=== PATIENT | female | born 1975 | race Caucasian/White ===

== ENCOUNTER 2018-01-20 13:13 | Inpatient (IN) | payer OTHER ==
[~2018-01-20] VITALS: Ht 170.2 cm; Wt 85.3 kg
[2018-01-20 13:20] VITALS: BP 142/90
[2018-01-20] MEDS ORDERED: NACL 0.9% 2,000 ML IV SCH (13:41)
[2018-01-20] MEDS ORDERED: traMADol 50 MG TAB PO ONE (13:45)
[2018-01-20] MEDS ORDERED: PIPERACILLIN/TAZOBACTAM 3.375 GM VIAL IV ONE (14:02)
[2018-01-20 14:34] LABS: BASOPHILS # (AUTO) 0.1 K/uL (0.00-0.22); BASOPHILS % (AUTO) 1.1 % (0.0-2.0); EOSINOPHILS # (AUTO) 0.3 K/uL (0-0.4); EOSINOPHILS % (AUTO) 2.9 % (0.0-4.0); HEMATOCRIT 44.1 % (36-48); HEMOGLOBIN 14.8 g/dL (12.0-16.0); LYMPHOCYTES # (AUTO) 1.8 K/uL (2.5-16.5); LYMPHOCYTES % (AUTO) 19.3 % (20.5-51.1); MEAN CORPUSCULAR HEMOGLOBIN 30 pg (27-31); MEAN CORPUSCULAR HGB CONC 34 g/dL (33-37); MEAN CORPUSCULAR VOLUME 88.3 fL (80-94); MONOCYTES # (AUTO) 0.6 K/uL (0.8-1.0); MONOCYTES % (AUTO) 6.6 % (1.7-9.3); NEUTROPHILS # (AUTO) 6.6 K/uL (1.8-7.7); NEUTROPHILS % (AUTO) 70.1 % (42.2-75.2); PLATELET COUNT (AUTO) 289 K/uL (140-450); RED CELL DISTRIBUTION WIDTH 13.2 % (11.6-13.7); WHITE BLOOD COUNT (AUTO) 9.4 K/uL (4.8-10.8)
[2018-01-20] MEDS: PIPERACILLIN/TAZOBACTAM 3.375 GM in DEXT 5% MINI-BAG PLUS 50 ML IV ONE ×2 (14:42→14:43)
[2018-01-20 14:46] LABS: ACETONE, SERUM NEGATIVE (NEGATIVE)
[2018-01-20 14:49] LABS: ANION GAP 9.3 (8-16); CARBON DIOXIDE 32.5 mmol/L (21-32); POTASSIUM 3.8 mmol/L (3.5-5.1)
[2018-01-20] MEDS ORDERED: LORazepam 2 MG/ML VIAL IVP PRN (14:50)
[2018-01-20] MEDS ORDERED: ONDANSETRON 4 MG/2 ML VIAL IVP PRN (14:50)
[2018-01-20] MEDS ORDERED: HYDROcodone/APAP 5/325 MG 1 TAB TAB PO PRN ×2 (14:50)
[2018-01-20] MEDS ORDERED: ACETAMINOPHEN 325 MG TAB PO PRN (14:50)
[2018-01-20 14:51] LABS: PROTHROMBIN TIME 9.6 secs (10.8-13.4)
[2018-01-20 14:54] LABS: ALBUMIN 3.6 g/dL (3.4-5.0); TOTAL BILIRUBIN 0.6 mg/dL (0.0-1.0)
[2018-01-20 14:56] LABS: MAGNESIUM 1.8 mg/dL (1.8-2.4); URIC ACID 5.3 mg/dL (2.6-7.2)
[2018-01-20] MEDS ORDERED: DEXTROSE 50% 50 ML SYR IVP PRN (15:00)
[2018-01-20] MEDS ORDERED: METF500T PO (15:07)
[2018-01-20] MEDS ORDERED: GLIP5TAB4 PO (15:09)
[2018-01-20] MEDS ORDERED: GLIP5TER PO (15:09)
[2018-01-20] MEDS ORDERED: SIMV10TA1 PO (15:15)
[2018-01-20] MEDS ORDERED: PREG200C PO (15:16)
[2018-01-20] MEDS ORDERED: TRAM50TA1 PO (15:19)
[2018-01-20] MEDS ORDERED: DOCU-299 PO (15:20)
[2018-01-20 16:00] VITALS: BP 119/85
[2018-01-20] MEDS: BLOOD GLUCOSE MONITORING 1 DEV DEV FS SCH ×2 (16:30→21:24)
[2018-01-20] MEDS: INSULIN LISPRO SLIDING SCALE 100 UNITS/ML VIAL SUBQ PRN ×2 (18:08→21:25)
[2018-01-20] MEDS: traMADol 50 MG TAB PO PRN (20:28)
[2018-01-20] MEDS ORDERED: traMADol 50 MG TAB PO PRN (21:00)
[2018-01-20] MEDS: PIPER/TAZO 3.375GM/D5W PREMIX 50 ML IV SCH (22:14)
[2018-01-21] VITALS: BP 115/66
[2018-01-21] MEDS: traMADol 50 MG TAB PO PRN ×2 (03:17→09:39)
[2018-01-21] MEDS: PIPER/TAZO 3.375GM/D5W PREMIX 50 ML IV SCH ×2 (05:59→12:13)
[2018-01-21 06:18] LABS: BASOPHILS % (AUTO) 0.6 % (0.0-2.0); EOSINOPHILS # (AUTO) 0.3 K/uL (0-0.4); EOSINOPHILS % (AUTO) 4.4 % (0.0-4.0); HEMATOCRIT 40.9 % (36-48); HEMOGLOBIN 13.5 g/dL (12.0-16.0); LYMPHOCYTES # (AUTO) 2.2 K/uL (2.5-16.5); LYMPHOCYTES % (AUTO) 31.7 % (20.5-51.1); MEAN CORPUSCULAR HEMOGLOBIN 29 pg (27-31); MEAN CORPUSCULAR HGB CONC 33 g/dL (33-37); MONOCYTES # (AUTO) 0.6 K/uL (0.8-1.0); MONOCYTES % (AUTO) 8.7 % (1.7-9.3); NEUTROPHILS # (AUTO) 3.7 K/uL (1.8-7.7); NEUTROPHILS % (AUTO) 54.6 % (42.2-75.2); PLATELET COUNT (AUTO) 249 K/uL (140-450); RED BLOOD CELL COUNT(AUTO) 4.64 MIL/uL (4.20-5.40); RED CELL DISTRIBUTION WIDTH 13.3 % (11.6-13.7); WHITE BLOOD COUNT (AUTO) 6.8 K/uL (4.8-10.8)
[2018-01-21] MEDS: BLOOD GLUCOSE MONITORING 1 DEV DEV FS SCH ×3 (06:44→16:30)
[2018-01-21 06:58] LABS: ALBUMIN 3.1 g/dL (3.4-5.0); ANION GAP 10.3 (8-16); CARBON DIOXIDE 29.6 mmol/L (21-32); CREATININE 0.9 mg/dL (0.6-1.3); POTASSIUM 3.9 mmol/L (3.5-5.1); TOTAL BILIRUBIN 0.5 mg/dL (0.0-1.0)
[2018-01-21 07:02] LABS: MAGNESIUM 1.9 mg/dL (1.8-2.4); PHOSPHORUS 4.4 mg/dL (2.5-4.9)
[2018-01-21 08:00] VITALS: BP 114/72
[2018-01-21] MEDS ORDERED: ENOXAPARIN 40 MG/0.4 ML SYR SUBQ SCH (09:00)
[2018-01-21] MEDS ORDERED: DOCUSATE SODIUM 100 MG GELCAP PO SCH (09:00)
[2018-01-21] MEDS ORDERED: glipiZIDE 5 MG TAB PO SCH (09:00)
[2018-01-21] MEDS: PREGABALIN 50 MG CAP PO SCH ×3 (09:26→17:00)
[2018-01-21 10:41] LABS: COLOR,URINE YELLOW (YELLOW)
[2018-01-21 10:42] LABS: BILIRUBIN,URINE NEGATIVE (NEGATIVE); BLOOD, URINE NEGATIVE (NEGATIVE); LEUKOCYTE ESTERASE ,URINE NEGATIVE (NEGATIVE); NITRITE, URINE NEGATIVE (NEGATIVE); UGLUCOSE NEGATIVE (NEGATIVE)
[2018-01-21 11:03] LABS: APPEARANCE,URINE CLEAR (CLEAR); RBC,URINE 0-5 (RARE) /HPF (0-5); WBC,URINE 0-5 (RARE) /HPF (0-5)
[2018-01-21] MEDS ORDERED: CEPH250C16 PO (15:52)
[2018-01-21 16:00] VITALS: BP 118/75
[2018-01-21] MEDS ORDERED: SIMVASTATIN 10 MG TAB PO SCH (17:00)
== END 2018-01-21 17:25 | disposition home or self-care (01) | DRG 383 ==
LOC: MED 13:13 → MTU 14:50
PROVIDERS: ADMIT Hospitalist; ATTEND Hospitalist
DX: L03.116 Cellulitis of left lower limb (principal); E11.40 Type 2 diabetes mellitus with diabetic neuropathy, unspecified; E78.5 Hyperlipidemia, unspecified; J45.909 Unspecified asthma, uncomplicated; I87.8 Other specified disorders of veins; Z79.84 Long term (current) use of oral hypoglycemic drugs; Z79.899 Other long term (current) drug therapy
CPT/HCPCS: 36415; 36600; 71045; 73630; 80053; 81001; 81025; 82009; 82550; 82553; 82803; 82948; 83036; 83605; 83735; 83874; 83880; 84100; 84484; 84550; 85025; 85379; 85610; 85651; 85730; 86140; 87040; 87081; 87086; 93005; 93926; 93971; 96361; 96365; 99285; J1650; J1815; J2543; J7030; Q0092

== ENCOUNTER 2020-11-18 19:49 | Emergency (ER) | payer OTHER ==
[~2020-11-18] VITALS: Ht 170.2 cm; Wt 78.9 kg
[~2020-11-18 19:49] MED LIST: CEPH250C16 PO; DOCU-299 PO; GLIP5TAB14 PO; GLIP5TER PO; METF500T PO; PREG200C PO; SIMV10TA1 PO; TRAM50TA1 PO
[2020-11-18 21:05] VITALS: BP 126/90
--- NOTE | 2020-11-18 21:08 | NUR ---
TO LOBBY A/W BED AMBULATORY
--- NOTE | 2020-11-18 21:39 | NUR ---
PT TAKEN TO BED 6
--- NOTE | 2020-11-18 21:55 | NUR ---
Note undone in EDM - 11/18/20 at 2243 by DAVE 45 YO/F BIB SELF W C/O CONSTANT PRESSURE/SHARP HEADACHE X12 HOURS, DIZZYNESS W/O FAINTING AND X1 EPISODE OF VOMITING. PATIENT REPORTS PUTTING PRESSURE ON HER HEAD W HER HAND HELPS W THE PAIN, PAIN WORSENS WHEN LAYING DOWN OR W LIGHT. PATIENT DENIES ANY BLURRY VISION. PATIENT REPORTS HX OF HEADACHES BUT "NOT BAS THIS ONE." PATIENT AOX4, GCS15. PATIENT SITTING IN BED LOCKED IN LOWEST POSITION, X2 SIDERAILS UP FOR PATIENT SAFETY. BREATHING EVEN AND UNLABORED. PROVIDED PATIENT W A BLANKET AND DIMMED ROOM LIGHTS FOR COMFORT. PMH: DIABETES, ASTHMA, CANCER (RIGHT BREAST MASTECTOMY 10/01/2016) SEASONAL ALLERGIES ONLY TOOK TRAMADOL AT 1830
--- NOTE | 2020-11-18 21:55 | NUR ---
45 YO/F BIB SELF W C/O CONSTANT PRESSURE/SHARP HEADACHE X12 HOURS, DIZZYNESS W/O FAINTING AND X1 EPISODE OF VOMITING. PATIENT REPORTS HITTING HER HEAD ON HER TV SHE STOOD UP AFTER REACHING FOR SOMETHING UNDER IT THE NIGHT BEFORE SYMPTOMS BEGAN. PATIENT REPORTS PUTTING PRESSURE ON HER HEAD W HER HAND HELPS W THE PAIN, PAIN WORSENS WHEN LAYING DOWN OR W LIGHT. PATIENT DENIES ANY BLURRY VISION. PATIENT REPORTS HX OF HEADACHES BUT "NOT BAS THIS ONE." PATIENT AOX4, GCS15. PATIENT SITTING IN BED LOCKED IN LOWEST POSITION, X2 SIDERAILS UP FOR PATIENT SAFETY. BREATHING EVEN AND UNLABORED. PROVIDED PATIENT W A BLANKET AND DIMMED ROOM LIGHTS FOR COMFORT. PMH: DIABETES, ASTHMA, CANCER (RIGHT BREAST MASTECTOMY 10/01/2016) SEASONAL ALLERGIES ONLY TOOK TRAMADOL AT 1830
--- NOTE | 2020-11-18 22:11 | NUR ---
Dr. Obrien examining patient.
[2020-11-18] MEDS ORDERED: ONDA-24 PO (22:16)
[2020-11-18] MEDS ORDERED: ONDANSETRON 4 MG ODT PO ONE (22:45)
[2020-11-18 23:00] VITALS: BP 126/90
== END 2020-11-18 23:00 | disposition home or self-care (01) ==
LOC: MED 19:49
DX: S06.0X0A Concussion without loss of consciousness, initial encounter (principal); W22.8XXA Striking against or struck by other objects, initial encounter; Y93.89 Activity, other specified; Y92.89 Other specified places as the place of occurrence of the external cause; Y99.8 Other external cause status
CPT/HCPCS: 99283; Q0162

== ENCOUNTER 2022-10-06 00:30 | Inpatient (IN) | payer OTHER ==
[2022-10-06] VITALS (7 sets, daily range): BP systolic 114–145; BP diastolic 70–81; PULSE 92–121; RESP 16–18; TEMP 97.7–100.9; O2SAT 93–97
[~2022-10-06] VITALS: Ht 170.2 cm; Wt 77.1 kg
[~2022-10-06 00:30] MED LIST changes: +METF-346 PO; -METF500T PO; +ONDA-188 PO; +SIMV-371 PO; -SIMV10TA1 PO; +TRAM-748 PO; -TRAM50TA1 PO
[2022-10-06] MEDS ORDERED: ACETAMINOPHEN 325 MG TAB PO ONE (00:50)
[2022-10-06] MEDS ORDERED: ACETAMINOPHEN 325 MG TAB ONE ×2 (00:51)
--- NOTE | 2022-10-06 00:54 | NUR ---
PT AMBUL.ATES TO BED 8
--- NOTE | 2022-10-06 00:55 | NUR ---
pt ambulatory to restroom without assistance
--- NOTE | 2022-10-06 01:05 | NUR ---
PT PLACED ON C-MONITOR, IV ESTABLISHED, BLOOD DRAWN VIA IV LINE AND SENT TO LABE. PT TOLERATED WELL. PT UPDATED ON POC WITH FULL RETURNED VERBAL UNDERSTANDING. CALL LIGHT WITHIN REACH
[2022-10-06] MEDS ORDERED: NACL 0.9% 1,000 ML IV ONE ×2 (01:10→02:35)
[2022-10-06 01:21] LABS: APPEARANCE,URINE CLEAR (CLEAR); BILIRUBIN,URINE NEGATIVE (NEGATIVE); BLOOD, URINE TRACE-I (NEGATIVE); COLOR,URINE YELLOW (YELLOW); LEUKOCYTE ESTERASE ,URINE NEGATIVE (NEGATIVE); NITRITE, URINE NEGATIVE (NEGATIVE); UGLUCOSE 3+ (NEGATIVE)
[2022-10-06 01:24] LABS: BASOPHILS # (AUTO) 0.1 K/uL (0.00-0.22); BASOPHILS % (AUTO) 1.1 % (0.0-2.0); EOSINOPHILS # (AUTO) 0.1 K/uL (0-0.4); EOSINOPHILS % (AUTO) 0.7 % (0.0-4.0); HEMATOCRIT 46.4 % (36-48); HEMOGLOBIN 15.7 g/dL (12.0-16.0); LYMPHOCYTES # (AUTO) 2.1 K/uL (2.5-16.5); MEAN CORPUSCULAR HEMOGLOBIN 30 pg (27-31); MEAN CORPUSCULAR HGB CONC 34 g/dL (33-37); MEAN CORPUSCULAR VOLUME 88.7 fL (80-94); MONOCYTES % (AUTO) 7.4 % (1.7-9.3); NEUTROPHILS # (AUTO) 9.9 K/uL (1.8-7.7); NEUTROPHILS % (AUTO) 74.8 % (42.2-75.2); PLATELET COUNT (AUTO) 190 K/uL (140-450); RED BLOOD CELL COUNT(AUTO) 5.23 MIL/uL (4.20-5.40); RED CELL DISTRIBUTION WIDTH 13.8 % (11.6-13.7); WHITE BLOOD COUNT (AUTO) 13.2 K/uL (4.8-10.8)
[2022-10-06 01:38] LABS: ANION GAP 12.4 (8-16); CARBON DIOXIDE 30.4 mmol/L (21-32); CREATININE 1.2 mg/dL (0.6-1.3); POTASSIUM 3.8 mmol/L (3.5-5.1); TOTAL BILIRUBIN 1.1 mg/dL (0.0-1.0)
[2022-10-06] MEDS ORDERED: MORPHINE SULFATE 4 MG/ML SYR IVP ONE (02:35)
[2022-10-06] MEDS ORDERED: ONDANSETRON 4 MG/2 ML VIAL IVP ONE (02:35)
[2022-10-06] MEDS ORDERED: cefTRIAXone 1,000 MG VIAL ONE (02:45)
[2022-10-06] MEDS ORDERED: oxyCODONE/APAP 5/325 MG 1 TAB TAB PO ONE (02:50)
[2022-10-06] MEDS ORDERED: MORPHINE SULFATE 2 MG/ML SYR IVP PRN (06:35)
[2022-10-06] MEDS ORDERED: ACETAMINOPHEN 325 MG TAB PO PRN (06:35)
[2022-10-06] MEDS ORDERED: ONDANSETRON 4 MG/2 ML VIAL IVP PRN (06:35)
[2022-10-06] MEDS ORDERED: DEXTROSE 50% 50 ML SYR IVP PRN (06:35)
[2022-10-06] MEDS ORDERED: LORazepam 2 MG/ML VIAL IVP PRN (06:35)
[2022-10-06] MEDS ORDERED: HYDROcodone/APAP 5/325 MG 1 TAB TAB PO PRN (06:35)
[2022-10-06] MEDS: BLOOD GLUCOSE MONITORING 1 DEV DEV FS SCH ×4 (07:18→20:33)
--- NOTE | 2022-10-06 07:21 | NUR ---
Pt report given to Trupti HENDERSON. Transfer of care at this time.
--- NOTE | 2022-10-06 07:25 | NUR ---
Note keywily in EDM - 10/06/22 at 0733 by [email or web address] RECEIVED REPORT FROM BEATRIZ GONZALEZ, PT AT HEAD OF BED ON MONITOR. PT HAS BEEN ADMITTED FOR CELLULITIES . PT WILL BE TRANSFERED TO ROOM 112 A [facility]. PT HAS BEEN PLACED ON MONITOR. PT VITALS RECORDED. PER BEATRIZ GONZALEZ PTS PULSE RANGE IS 37- 50. MADE AWARE. PT IS RESTING.
--- NOTE | 2022-10-06 07:47 | NUR ---
RECEIVED REPORT FROM BEATRIZ GONZALEZ. PT IS BEING ADMITTED FOR CELLULITES OF THE RIGHT LEG. PT CAME IN LAST FROM HOME. PT STATES SHE HAS A HEADACHE PT STATES SHES BEEN IN PAIN 3 DAYS. PT HAS HAD A FEVER HIGH 100.9. PT TREATED FEVER WITH TYELNOL. PT WAS WEARING WORK BOOTS THAT CAUSED HER TO HAVE A BLISTER ON THE LEFT SIDE OF HER RIGHT LEG. PICTURES IN CHART. PT HAS MET SEPSIS PROTOCAL. PT DENIES COUGH AT THIS TIME; PATIENT STATES PAIN OF 4/10 AT THIS TIME; VSS; PATIENT POSITIONED FOR COMFORT; HOB ELEVATED; BEDRAILS UP X2; BED DOWN. CALL LIGHT WITH IN REACH. ER MADE AWARE OF PT STATUS. PMHX MYSECTOMY RIGHT SIDE LYMPHADEMA ( BLOOD PRESSURE CUFF ) DM NEOROPYTHY INFLAMTORY BREAST CANCER ( CHEMO ) CELLULITES FEET PROBLEMS FOOD PREFFRENCE NO SUGAR ADDED FOOD ONLY ALLERGIES BACTRIM ASPERTAIN
--- NOTE | 2022-10-06 08:05 | NUR ---
PT WILL BE TRANSFERED TO 112-A PRADIP RN STATES TO BRING PT AT 830 SHE WILL DO BEDSIDE REPORT
--- NOTE | 2022-10-06 08:45 | NUR ---
PATIENT HAS BEEN SCREENED AND CATEGORIZED LOW NUTRITION RISK. PATIENT WILL BE SEEN WITHIN 7 DAYS OF ADMISSION. 10/13/[address]
--- NOTE | 2022-10-06 09:02 | NUR ---
PT HAS BEEN HAS BEEN TRANSFERED TO ROOM 112 A BEDSIDE REPORT GIVEN TO NIGEL MOSELEY
--- NOTE | 2022-10-06 09:04 | NUR ---
RECEIVE BEDSIDE REPORT FROM ER NURSE THAT PATIENT COME FROM HOME FO REDNESS, P[AIN & MILD SWELLING AT R. BORJA WHICH DIAGNOSIS WITH CELLULITIS W/ HX OF DM W/ NEUROPATHY, BREAST CANCER W/ LYMPHEDEMA R. MASTECTOMY. PATIENT ALLERGY TO BARRIM, FULL CODE, AMBULATORY, ALERT X 4 ON ROOM AIR, CCHO 60 DIET WITH NO SUGAR ADD TO FOOD. LAC 18G SALINE LOCK. VITAL WITHIN PATIENT'S BASELINE (T-P-R: 96.6-98-18, BP: 124/74, O2 SAT 99% IN ROOM AIR). WILL CONTINUE TO MONITOR Addendum: 10/06/22 at 1939 by Zuleyka Parham RN ENDORSE PATIENT IN STABLE CONDITION TO PM SHIFT NURSE WITH PIV LAC 18G SALINE LOCK. NO BP AT R. ARM D/T S/P R. MASTECTOMY. PERCOCET ORDER RECEIVED FOR PAIN PER PATIENT REQUEST.
--- NOTE | 2022-10-06 09:15 | NUR ---
The patient's care was reviewed and supervised by Kimberly 04 ED, RN.
[2022-10-06] MEDS ORDERED: VANCOMYCIN PER PHARMACY MC PRN (10:00)
[2022-10-06] MEDS: INSULIN LANTUS 100 UNITS/ML 10 ML VIAL SUBQ SCH (10:36)
[2022-10-06] MEDS: ENOXAPARIN 40 MG/0.4 ML SYR SUBQ SCH (10:39)
[2022-10-06] MEDS: VANCOMYCIN 1.25GM PREMIX 250 ML IV SCH (12:13)
[2022-10-06] MEDS: INSULIN LISPRO SLIDING SCALE 100 UNITS/ML VIAL SUBQ PRN ×3 (12:16→20:35)
[2022-10-06] MEDS: PIPERACILLIN/TAZOBACTAM 3.375 GM in DEXTROSE 5% 50 ML IV SCH ×2 (13:51→20:27)
--- NOTE | 2022-10-06 19:30 | NUR ---
PATIENT IN BED RESTING ALERT ORIENTED. NO SOB NOTED ON ROOM AIR. IV ACCESS TO LEFT AC SALINE LOCK. NO COMPLAINTS OF PAIN AT THIS TIME. CALL LIGHT IN REACH. BED WHEELS LOCK IN LOW POSITION. NEEDS ATTENDED TO.
--- NOTE | 2022-10-06 20:27 | NUR ---
SCHEDULED MEDICATION ADMINISTERED ORDERED.
[2022-10-07] MEDS: oxyCODONE/APAP 5/325 MG 1 TAB TAB PO PRN ×3 (01:55→20:26)
[2022-10-07] MEDS: PIPERACILLIN/TAZOBACTAM 3.375 GM in DEXTROSE 5% 50 ML IV SCH ×3 (05:26→21:47)
[2022-10-07 06:00] VITALS: BP 109/69; PULSE 84; RESP 18; TEMP 97.4; O2SAT 92
[2022-10-07] MEDS: BLOOD GLUCOSE MONITORING 1 DEV DEV FS SCH ×4 (06:36→20:55)
[2022-10-07 06:52] LABS: ALBUMIN 3.1 g/dL (3.4-5.0); ANION GAP 11.5 (8-16); BASOPHILS % (AUTO) 0.4 % (0.0-2.0); CARBON DIOXIDE 28.2 mmol/L (21-32); EOSINOPHILS # (AUTO) 0.3 K/uL (0-0.4); EOSINOPHILS % (AUTO) 2.3 % (0.0-4.0); HEMATOCRIT 40.9 % (36-48); HEMOGLOBIN 13.6 g/dL (12.0-16.0); LYMPHOCYTES # (AUTO) 2.7 K/uL (2.5-16.5); LYMPHOCYTES % (AUTO) 23.8 % (20.5-51.1); MAGNESIUM 2.1 mg/dL (1.8-2.4); MEAN CORPUSCULAR HEMOGLOBIN 30 pg (27-31); MEAN CORPUSCULAR HGB CONC 33 g/dL (33-37); MEAN CORPUSCULAR VOLUME 89.1 fL (80-94); MONOCYTES # (AUTO) 0.9 K/uL (0.8-1.0); MONOCYTES % (AUTO) 8.2 % (1.7-9.3); NEUTROPHILS # (AUTO) 7.3 K/uL (1.8-7.7); NEUTROPHILS % (AUTO) 65.3 % (42.2-75.2); PLATELET COUNT (AUTO) 154 K/uL (140-450); POTASSIUM 3.7 mmol/L (3.5-5.1); RED BLOOD CELL COUNT(AUTO) 4.59 MIL/uL (4.20-5.40); TOTAL BILIRUBIN 0.7 mg/dL (0.0-1.0); WHITE BLOOD COUNT (AUTO) 11.2 K/uL (4.8-10.8)
--- NOTE | 2022-10-07 07:40 | NUR ---
BEDSIDE ENDORSEMENT GIVEN TO GUILLERMO MARTIN FOR CONTINUITY OF CARE. PATIENT IS STABLE.
[2022-10-07 08:00] VITALS: PULSE 84; RESP 19; O2SAT 96
[2022-10-07] MEDS: ENOXAPARIN 40 MG/0.4 ML SYR SUBQ SCH (09:18)
[2022-10-07] MEDS: INSULIN LANTUS 100 UNITS/ML 10 ML VIAL SUBQ SCH (09:20)
[2022-10-07] MEDS: VANCOMYCIN 1.25GM PREMIX 250 ML IV SCH (12:47)
--- NOTE | 2022-10-07 17:00 | NUR ---
WOUND CARE WAS DONE WITH PT. WAITED TO DO WOUND CARE TIL PT WAS AWAKE/READY. ADMINISTERED PAIN MED PRIOR REQUESTED BY PT. PT WOUND HAD SMALL DRAINAGE, SLIGHT SMELL. WOUND LOOKS SWOLLEN, RED/INFLAMED. DRESSING APPLIED. NEW DRESSING CLEAN/INTACT. NO FURTHER NEEDS ARE TO BE MET AT THIS TIME, CALL LIGHT WITHIN REACH, WILL CONTINUE WITH CARE.
[2022-10-07 18:00] VITALS: BP 132/75; PULSE 94; RESP 18; TEMP 97.7; O2SAT 96
--- NOTE | 2022-10-07 19:26 | NUR ---
PT STABLE IN BED, NO SIGNS OF DISTRESS. ENDORSED TO NIGHTSHIFT NURSE FOR CONTINUITY OF CARE. CALL LIGHT PLACED WITHIN REACH.
--- NOTE | 2022-10-07 19:27 | NUR ---
RECEIVED BEDSIDE REPORT FROM VERONICA MANNING FOR CONTINUITY OF CARE. PATIENT IS AWAKE AND STABLE. AAOX4. PATIENT EXPRESSED FRUSTRATION BY YELLING, "THIS PLACE IS TERRIBLE. THERE ISN'T EVEN A TRASH BIN IN THE BATHROOM!" PATIENT STARTED TO CRY. REASSURED PATIENT THAT NEEDS WILL BE MET. HELPED PATIENT GET COMFORTABLE IN THE BED. PATIENT VERBALIZES PAIN IN RLE 7/10. WILL MEDICATE WITH PRN PER MD ORDER. ON ROOM AIR WITH NO APPARENT S/SX OF ACUTE DISTRESS. RESPIRATIONS EVEN AND UNLABORED. IV SITE TO THE ;AC 18G IS PATENT/INTACT SL. PLAN OF CARE AND WHITE COMMUNICATION BOARD UPDATED. ALL SAFETY MEASURES IN PLACE. CALL LIGHT WITHIN REACH. ENCOURAGED TO USE CALL LIGHT FOR ANY NEEDS/ASSISTANCE. BED IN LOW/LOCKED POSITION. SIDE RAILS X2 UP. WILL CONTINUE TO MONITOR.
[2022-10-07 20:00] VITALS: BP 127/71; PULSE 87; RESP 16; TEMP 99.3; O2SAT 97
--- NOTE | 2022-10-07 20:00 | NUR ---
Patient's Plan of Care was discussed and reviewed with BEATRIZ: KARYN
--- NOTE | 2022-10-07 21:15 | NUR ---
PATIENT APOLOGIZED FOR HAVING AN OUTBURST EARLIER. REASSURED PATIENT THAT HER FRUSTRATION IS UNDERSTANDABLE. CHANGED DRESSING ON PATIENT'S RLE. TOLERATED WELL. CHECKED BLOOD SUGAR AND NO COVERAGE NEEDED PER MD ORDER. DENIES PAIN AT THIS TIME. RESPIRATIONS EVEN AND UNLABORED WITH NO APPARENT S/SX OF ACUTE DISTRESS. WHITE COMMUNICATION BOARD UPDATED. ALL SAFETY MEASURES IN PLACE. CALL LIGHT WITHIN REACH. ENCOURAGED TO CALL FOR ANY NEEDS/ASSISTANCE. BED IN LOW/LOCKED POSITION. SIDE RAILS X2 UP. WILL CONTINUE TO MONITOR.
--- NOTE | 2022-10-07 23:05 | NUR ---
PATIENT IS AWAKE, STABLE, AND ON HER PHONE. DENIES PAIN AT THIS TIME. ASKED FOR ANY NEEDS AT THIS TIME AND PATIENT STATES, "NO, I'M GOOD. THANK YOU". RESPIRATIONS EVEN AND UNLABORED WITH NO APPARENT S/SX OF ACUTE DISTRESS. WHITE COMMUNICATION BOARD UPDATED. ALL SAFETY MEASURES IN PLACE. CALL LIGHT WITHIN REACH. ENCOURAGED TO USE CALL LIGHT FOR ANY NEEDS/ASSISTANCE. BED IN LOW/LOCKED POSITION. SIDE RAILS X2 UP. WILL CONTINUE TO MONITOR.
--- NOTE | 2022-10-08 01:05 | NUR ---
CHECKED PATIENT. PATIENT IS STABLE AND ASLEEP IN LEFT SIDE-LYING POSITION WITH NO FACIAL GRIMACING. CHEST IS RISING AND FALLING SYMMETRICALLY. RESPIRATIONS EVEN AND UNLABORED WITH NO APPARENT S/SX OF ACUTE DISTRESS. WHITE COMMUNICATION BOARD UPDATED. ALL SAFETY MEASURES IN PLACE. CALL LIGHT WITHIN REACH. BED IN LOW/LOCKED POSITION. SIDE RAILS X2 UP. WILL CONTINUE TO MONITOR.
[2022-10-08] MEDS: oxyCODONE/APAP 5/325 MG 1 TAB TAB PO PRN ×3 (02:42→22:56)
--- NOTE | 2022-10-08 03:05 | NUR ---
PATIENT C/O 10/04 RLE PAIN. MEDICATED PER PRN ORDER. TOLERATED WELL. PROVIDED SOME SNACKS PER PATIENT REQUEST. RESPIRATIONS EVEN AND UNLABORED WITH NO APPARENT S/SX OF ACUTE DISTRESS. WHITE COMMUNICATION BOARD UPDATED. ALL SAFETY MEASURES IN PLACE. CALL LIGHT WITHIN REACH. ENCOURAGED TO USE CALL LIGHT FOR ANY NEEDS/ASSISTANCE. BED IN LOW/LOCKED POSITION. SIDE RAILS X2 UP. WILL CONTINUE TO MONITOR.
[2022-10-08 04:00] VITALS: BP 120/71; PULSE 85; RESP 16; TEMP 97.7; O2SAT 97
[2022-10-08] MEDS: PIPERACILLIN/TAZOBACTAM 3.375 GM in DEXTROSE 5% 50 ML IV SCH ×3 (05:02→22:14)
--- NOTE | 2022-10-08 05:05 | NUR ---
PROVIDED PATIENT SOME TOWEL PER REQUEST. DENIES PAIN AT THIS TIME. RESPIRATIONS EVEN AND UNLABORED WITH NO APPARENT S/SX OF ACUTE DISTRESS. ALL NEEDS MET AT THIS TIME. WHITE COMMUNICATION BOARD UPDATED. ALL SAFETY MEASURES IN PLACE. CALL LIGHT WITHIN REACH. ENCOURAGED TO CALL FOR ANY NEEDS/ASSISTANCE. BED IN LOW/LOCKED POSITION. SIDE RAILS X2 UP. WILL CONTINUE TO MONITOR.
[2022-10-08] MEDS: BLOOD GLUCOSE MONITORING 1 DEV DEV FS SCH ×4 (06:32→21:03)
[2022-10-08] MEDS: INSULIN LISPRO SLIDING SCALE 100 UNITS/ML VIAL SUBQ PRN ×2 (06:35→21:05)
--- NOTE | 2022-10-08 07:05 | NUR ---
ENDORSED PATIENT TO VERONICA MANNING FOR CONTINUITY OF CARE. PATIENT IS STABLE.
[2022-10-08 07:07] LABS: CARBON DIOXIDE 29.8 mmol/L (21-32); CREATININE 0.9 mg/dL (0.6-1.3); POTASSIUM 3.8 mmol/L (3.5-5.1)
[2022-10-08 08:00] VITALS: PULSE 69; RESP 18; O2SAT 98
[2022-10-08] MEDS: ENOXAPARIN 40 MG/0.4 ML SYR SUBQ SCH (09:00)
[2022-10-08] MEDS: INSULIN LANTUS 100 UNITS/ML 10 ML VIAL SUBQ SCH (09:36)
--- NOTE | 2022-10-08 09:56 | NUR ---
WOUND CARE NOTE: WOUND ASSESSMENT DONE ON THIS 47 Y/O. PT IS AAX4 PT. ADMITTED WITH RLE CELLULITIS. 2X2CM CLOSED BLISTERING SKIN WITH BROWN/BLACK TISSUE, MELINDA WOUND SKIN ERYTHEMA, INDURATION < .5CM PAIN 5/10. PER PT. SHE FOLLOW LOCAL PODIATRY AND WAS INSTRUCTED TO HAVE CHERYL BANDAGE WARPING BLE AND SHE DOES THAT DAILY BY HERSELF. RECOMMENDATIONS WITH POC DISCUSSED WITH PT. PT. AGREEABLE AT THIS TIME WAIT FOR TEST RESULT. POC DISCUSSED WITH PRIMARY RN VERONICA. RECOMMENDATIONS: -SOFT TISSUE ULTRASOUND TO RLE -CLEANSE RLE WOUND WITH NS. PAT DRY, APPLY SILVASORB GEL AND COVER WITH COMPOSITE DRESSING DAILY AND PRN IF SOILING
--- NOTE | 2022-10-08 12:46 | NUR ---
Shirt Presser CLINIC OFFICE ASSISTANT confirmed demographics on face sheet. Father listed is Emergency Contact. PT. resides with father, not able to work, mo support from sister. 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 Pt. has diabetes and when one foot heals, the other foot becomes painful and hard to bear weight.Pt. is coherent and able to make decisions, but her physical condition of her feet, make it painful to walk. Pt. resides at father's home. There are two stairs in the front and one in the back. Pt will walk to the back so she only has to maneuver only one step in the back of the house. Doing so causing a lot of pain.
[2022-10-08] MEDS: GAUZE TP SCH (13:00)
--- NOTE | 2022-10-08 14:35 | NUR ---
CALLED DR SU GARCIA'S OFFICE LOCATED AT [address] [facility], [address], [place] [id number]. SPOKE WITH RUIZ WHO WAS ABLE TO HELP ME SCHEDULE A FOLLOW UP APPOINTMENT FOR 10/19/2022 AT 1300. WENT TO BEDSIDE TO INFORM PATIENT OF THE ABOVE INFORMATION WELL GAVE HER THE APPOINTMENT SLIP CONTAIN THE ABOVE INFO AND [facility] TRANSPORT NUMBER . ALSO TALKED TO PATIENT ABOUT GETTING HOME HEALTH SERVICES FOR WOUND CARE BUT SHE IS REFUSING HOME HEALTH FOR WOUND CARE STATING THAT "SHE HAS HAD HOME HEALTH IN THE PAST AND THE ARE NOT HELPFUL AND SHE CAN CARE FOR THE WOUND HERSELF AND JUST NEED SUPPLIES" INFORMED NURSE ROBERTO OF THE ABOVE INFORMATION IN CASE SHE IS DISCHARGED OVER THE WEEKEND.
[2022-10-08 16:00] VITALS: BP 150/86; PULSE 79; RESP 16; TEMP 97.3; O2SAT 99
[2022-10-08] MEDS: VANCOMYCIN 1,000 MG in NACL 0.9% 250 ML IV SCH (17:21)
--- NOTE | 2022-10-08 19:15 | NUR ---
RECEIVED ENDORSEMENT FROM VERONICA MANNING, PATIENT WAS ALERT AND ORIENTED WITH FAMILY AT BEDSIDE. PATIENT WAS GIVEN BEDSIDE COMMODE DUE TO TOILET NOT FLUSHING. EVS WAS CALLED TO PLEASE FIX. DRESSING ON PATIENT LEG WAS CLEAN AND INTACT, NURSING DATED. PATIENT DENIES PAIN AT THIS TIME. PREFERS ONLY DILAUDID FOR PAIN RELIEF, PATIENT WAS GIVEN EDUCATION TO USE OTHER PAIN MANAGEMENT FOR BREAK THROUGH PAIN INSTEAD OF WAITING FOR DILAUDID. PATIENT UNDERSTOOD AND AGREED. PATIENT WAS NOT IN RESPIRATORY DISTRESS. NOTED CHEST RISING AND FALLING WITHOUT INCIDENT. PATIENT IS AWARE TO USE CALL LIGHT FOR ALL NEEDS AND ASSISTANCE. CALL LIGHT WITHIN REACH. [email or web address]
--- NOTE | 2022-10-08 19:16 | NUR ---
Patient's Plan of Care was discussed and reviewed with BEATRIZ: SHAKIRA
[2022-10-08 20:00] VITALS: PULSE 85; RESP 20; O2SAT 97
--- NOTE | 2022-10-08 23:02 | NUR ---
PATIENT REQUEST PRN BLOOD PRESSURE NOTED AT 139/81 HR 85. NURSING WILL MONITOR FOR EFFECTIVE NESS. CALL LIGHT WITHIN REACH. [email or web address]
--- NOTE | 2022-10-09 00:06 | NUR ---
PATIENT SHOWS NOT S/S OF PAIN AT THIS TIME. NO NOTED SIDE EFFECTS OF MEDICATION. SIDE RAILS UP X 2 CALL LIGHT WITHIN REACH. [email or web address]
[2022-10-09] MEDS: VANCOMYCIN 1,000 MG in NACL 0.9% 250 ML IV SCH ×2 (03:30→15:18)
[2022-10-09 04:00] VITALS: BP 109/69; PULSE 71; RESP 18; TEMP 98.6; O2SAT 94
[2022-10-09] MEDS: PIPERACILLIN/TAZOBACTAM 3.375 GM in DEXTROSE 5% 50 ML IV SCH ×3 (05:32→21:39)
[2022-10-09] MEDS: BLOOD GLUCOSE MONITORING 1 DEV DEV FS SCH ×4 (06:57→21:42)
[2022-10-09] MEDS: INSULIN LISPRO SLIDING SCALE 100 UNITS/ML VIAL SUBQ PRN ×3 (07:06→22:20)
--- NOTE | 2022-10-09 07:37 | NUR ---
ENDORSED PATIENT TO VERONICA MANNING, PATIENT WAS STABLE DURING SHIFT REPORT. SIDE RAILS UP X2 CALL LIGHT WITHIN REACH. [email or web address]
[2022-10-09 07:44] LABS: ANION GAP 12.7 (8-16); CARBON DIOXIDE 30.3 mmol/L (21-32); CREATININE 0.9 mg/dL (0.6-1.3)
[2022-10-09 08:00] VITALS: PULSE 78; RESP 17; O2SAT 99
[2022-10-09] MEDS: ENOXAPARIN 40 MG/0.4 ML SYR SUBQ SCH (09:00)
[2022-10-09] MEDS: INSULIN LANTUS 100 UNITS/ML 10 ML VIAL SUBQ SCH (10:20)
[2022-10-09 11:30] LABS: BASOPHILS % (AUTO) 0.5 % (0.0-2.0); EOSINOPHILS # (AUTO) 0.3 K/uL (0-0.4); HEMOGLOBIN 14.6 g/dL (12.0-16.0); LYMPHOCYTES # (AUTO) 2.1 K/uL (2.5-16.5); LYMPHOCYTES % (AUTO) 29.4 % (20.5-51.1); MEAN CORPUSCULAR HEMOGLOBIN 30 pg (27-31); MEAN CORPUSCULAR HGB CONC 33 g/dL (33-37); MEAN CORPUSCULAR VOLUME 89.2 fL (80-94); MONOCYTES # (AUTO) 0.7 K/uL (0.8-1.0); MONOCYTES % (AUTO) 9.1 % (1.7-9.3); NEUTROPHILS # (AUTO) 4.2 K/uL (1.8-7.7); PLATELET COUNT (AUTO) 214 K/uL (140-450); RED BLOOD CELL COUNT(AUTO) 4.93 MIL/uL (4.20-5.40); RED CELL DISTRIBUTION WIDTH 13.8 % (11.6-13.7); WHITE BLOOD COUNT (AUTO) 7.3 K/uL (4.8-10.8)
[2022-10-09] MEDS: GAUZE TP SCH (13:00)
[2022-10-09] MEDS: oxyCODONE/APAP 5/325 MG 1 TAB TAB PO PRN (14:18)
--- NOTE | 2022-10-09 19:30 | NUR ---
RECEIVED REPORT FROM DAY SHIFT NURSE ADAM FOR CONTINUITY OF CARE. PATIENT IS A&O X4. PATIENT IS ON ROOM AIR, BREATHING IS NORMAL WITH SYMMETRICAL RISE AND FALL OF CHEST. IV IS A 20G LAC, NO FLUIDS RUNNING AT THIS TIME. PATIENT IS SITTING HIGH-FOWLERS IN BED, AWAKE. BED IS IN LOWEST POSITION, WHEELS LOCKED, CALL LIGHT IN PLACE. WILL CONTINUE TO OBSERVE PATIENT.
[2022-10-09 20:00] VITALS: BP 143/82; PULSE 85; RESP 18; TEMP 96.8; O2SAT 96
--- NOTE | 2022-10-09 22:30 | NUR ---
MEDICATIONS ADMINISTERED TO PATIENT SUCCESSFULLY WITHOUT ANY ISSUES WITH IV. BS WAS 184, 2 UNITS GIVEN FOR COVERAGE. PATIENT IS AWAKE WATCHING TV; WILL CONTINUE TO OBSERVE PATIENT.
--- NOTE | 2022-10-10 01:00 | NUR ---
LOOKED IN ON PATIENT. PATIENT WAS SLEEPING WITH SYMMETRICAL RISE AND FALL OF CHEST. WILL CONTINUE TO OBSERVE PATIENT.
[2022-10-10] MEDS: VANCOMYCIN 1,000 MG in NACL 0.9% 250 ML IV SCH ×2 (03:00→15:00)
[2022-10-10] MEDS: oxyCODONE/APAP 5/325 MG 1 TAB TAB PO PRN (03:20)
[2022-10-10 04:00] VITALS: BP 99/59; PULSE 82; RESP 18; TEMP 97.1; O2SAT 95
--- NOTE | 2022-10-10 04:30 | NUR ---
PATIENT REQUESTED PERCOCET FOR 8/10 RIGHT RODRIGUEZ PAIN. CHECKED VITALS AND CHART; PERCOCET WAS APPROPRIATE TO ADMINISTER. MEDICATION ADMINISTERED SUCCESSFULLY WITHOUT ANY ISSUES WITH SWALLOWING. REASSESSED PATIENT AT 0420; PATIENT WAS SLEEPING. BREATHING IS NORMAL WITH SYMMETRICAL RISE AND FALL OF CHEST. WILL CONTINUE TO OBSERVE PATIENT.
[2022-10-10] MEDS: PIPERACILLIN/TAZOBACTAM 3.375 GM in DEXTROSE 5% 50 ML IV SCH ×2 (05:54→15:00)
[2022-10-10] MEDS: BLOOD GLUCOSE MONITORING 1 DEV DEV FS SCH ×2 (06:49→11:27)
[2022-10-10 06:56] LABS: ANION GAP 11.6 (8-16); CARBON DIOXIDE 28.1 mmol/L (21-32); CREATININE 0.8 mg/dL (0.6-1.3); POTASSIUM 3.7 mmol/L (3.5-5.1)
--- NOTE | 2022-10-10 07:15 | NUR ---
receive the patient from the custom studio coordinator rn in rm 112A aox4 with admitting diagnosis of cellulitis no complain of pain at this time . will continue to monitor
--- NOTE | 2022-10-10 07:34 | NUR ---
ENDORSE TO DAY SHIFT NURSE CHINEDU FOR CONTINUITY OF CARE. PATIENT IS STABLE.
[2022-10-10 08:06] VITALS: PULSE 80; RESP 20; O2SAT 99
[2022-10-10] MEDS: ENOXAPARIN 40 MG/0.4 ML SYR SUBQ SCH (09:00)
[2022-10-10] MEDS: INSULIN LANTUS 100 UNITS/ML 10 ML VIAL SUBQ SCH (10:03)
[2022-10-10] MEDS: INSULIN LISPRO SLIDING SCALE 100 UNITS/ML VIAL SUBQ PRN (11:28)
[2022-10-10] MEDS ORDERED: FURO-572 PO (12:38)
[2022-10-10] MEDS ORDERED: CLIN300C2 PO (12:39)
[2022-10-10] MEDS ORDERED: POTA10TA70 PO (12:40)
[2022-10-10] MEDS ORDERED: ACET-5629 PO (12:41)
[2022-10-10] MEDS: GAUZE TP SCH (13:00)
--- NOTE | 2022-10-10 14:00 | NUR ---
discontinue the intravenous port , gerardo genao , made patient teaching on wound care dressing change . discharge the patient home . brought to the lobby thru a wheelchair to a waiting private car with the mother in a stable condition
[2022-10-10 14:35] VITALS: BP 128/85; PULSE 68; RESP 20; TEMP 97.1
[2022-10-11] MEDS ORDERED: CLIN300C2 PO (21:58)
[2022-10-11] MEDS ORDERED: FURO-572 PO ×2 (21:59)
[2022-10-11] MEDS ORDERED: POTA10TA70 PO (22:00)
== END 2022-10-10 15:34 | disposition home or self-care (01) | DRG 720 ==
LOC: MED 00:30 → MMU 06:35 → MTU 08:11
PROVIDERS: ADMIT Student in an Organized Health Care Education/Training Program; ATTEND Student in an Organized Health Care Education/Training Program
DX: A41.9 Sepsis, unspecified organism (principal); D84.9 Immunodeficiency, unspecified; E86.1 Hypovolemia; L03.115 Cellulitis of right lower limb; E11.65 Type 2 diabetes mellitus with hyperglycemia; I10 Essential (primary) hypertension; J45.909 Unspecified asthma, uncomplicated; E66.9 Obesity, unspecified; E78.5 Hyperlipidemia, unspecified; Z85.3 Personal history of malignant neoplasm of breast; Z88.2 Allergy status to sulfonamides; Z90.11 Acquired absence of right breast and nipple; Z68.26 Body mass index [BMI] 26.0-26.9, adult
CPT/HCPCS: 36415; 73700; 80048; 80053; 80202; 81003; 82948; 83605; 83735; 85025; 87040; 87081; 87086; 96361; 96365; 99291; J0696; J1650; J1815; J2270; J2405; J2543; J3370; J3372; J7030; J7060